=== PATIENT | male | born 1995 | race Caucasian/White ===

== ENCOUNTER 2018-10-02 18:24 | Emergency (ER) | payer BC, SELFPAY ==
[2018-10-02 18:28] VITALS: BP 116/90; PULSE 90; RESP 12; TEMP 37.1; O2SAT 95
--- NOTE | 2018-10-02 18:49 | W.ED.GENAD ---
Discharge Plan Disposition Patient Disposition: HOME Condition: Improving Discharge Details Chief Complaint: Orthopedic Clinical Impression: Left wrist sprain Primary Care Provider: Janeth,Local ED Provider: Vance Rolle Home Meds and New Rx's Prescriptions: No Action No Known Home Meds RF: 0 Discharge Instructions Instructions: Wrist Sprain (ED) Additional Instructions: Continue ice to reduce pain and swelling. Tylenol and ibuprofen if needed for discomfort. As we discussed, please wear the splint for 7 to 10 days time. If you have persistent pain you will need to be reevaluated to make sure there is no occult fracture. 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 No neuro/motor/vascular deficits. He does have volar swelling and tenderness to palpation. Radiograph obtained without evidence of underlying fracture. I will place him in a splint for comfort. He does understand the need for repeat evaluation if pain persist beyond 7 to 10 days time. He stable for outpatient management at this time HPI General Mode of arrival: ambulatory. Date/Time Provider Initiated Documentation: 10/02/18 18:29. Limitations to Documentation: no limitations. Information obtained by: patient. History of Present Illness 22 year old M presents to the emergency department with the chief complaint of Left wrist pain after falling while rollerblading, described as moderate, Quality is described as dull and constant, and is localized to the left and upper extremity. Patient reports no radiation. Patient started experiencing this minute(s) and it has been constant. No relieving factors improve symptom(s), Movement worsens symptoms . Patient notes no other symptoms.. Patient did receive the following treatments prior to arrival, cold therapy Related Data Home Medications Medication Instructions Recorded Confirmed Unknown [No Known Home Meds] 10/02/18 10/02/18 Allergies Allergy/AdvReac Type Severity Reaction Status Date / Time No Known Allergies Allergy Unverified 10/02/18 18:29 General Stated Complaint: Orthopedic CLARK: 3 Review of Systems Review of Systems No numbness or tingling. Denies other injury. 6 systems reviewed and otherwise negative [facility] Social History Smoking/Tobacco Use Status: Current every day Tobacco Type: cigarettes Alcohol Intake: current Alcohol Intake frequency: a few times a month Drug use: Daily Substance use type: marijuana Do you feel safe at home: Yes Do you feel safe in your relationship?: Yes Exam Narrative Exam Narrative: GEN: awake, alert, oriented 3. Pleasant, well groomed, interactive. HEAD: Normocephalic, atraumatic EXT: Full ROM, tender on left volar wrist. No significant deformity. 2+ radial pulse bilaterally. Motor rated 5 out of 5. Neuro: Grossly normal neurologic exam, conversant, interactive. Psych: Speech fluent, thoughts congruent, affect normal Course Vital Signs Temperature 37.1 C 10/02/18 18:28 Pulse 90 10/02/18 18:28 Respiratory Rate 12 10/02/18 18:28 Blood Pressure 116/90 10/02/18 18:28 Pulse Oximetry 95 10/02/18 18:28 Temperature 37.1 C 10/02/18 18:28 Temperature Source Temporal Artery Scan 10/02/18 18:28 Pulse 90 10/02/18 18:28 Respiratory Rate 12 10/02/18 18:28 Respiratory Effort Non-Labored 10/02/18 18:30 Blood Pressure 116/90 10/02/18 18:28 Blood Pressure Position Sitting 10/02/18 18:28 Pulse Oximetry 95 10/02/18 18:28 Oxygen Delivery Method Room Air 10/02/18 18:28 Oxygen Flow Rate 0 10/02/18 18:28 Pain Level 9 10/02/18 18:31
--- NOTE | 2018-10-02 18:52 | ED.GENADUL_ITS ---
Discharge Plan Disposition Patient Disposition: HOME Condition: Improving Discharge Details Chief Complaint: Orthopedic Clinical Impression: Left wrist sprain Primary Care Provider: Janeth,Local ED Provider: Vance Rolle Home Meds and New Rx's Prescriptions: No Action No Known Home Meds RF: 0 Discharge Instructions Instructions: Wrist Sprain (ED) Additional Instructions: Continue ice to reduce pain and swelling. Tylenol and ibuprofen if needed for discomfort. As we discussed, please wear the splint for 7 to 10 days time. If you have persistent pain you will need to be reevaluated to make sure there is no occult fracture. 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 No neuro/motor/vascular deficits. He does have volar swelling and tenderness to palpation. Radiograph obtained without evidence of underlying fracture. I will place him in a splint for comfort. He does understand the need for repeat evaluation if pain persist beyond 7 to 10 days time. He stable for outpatient management at this time HPI General Mode of arrival: ambulatory . Date/Time Provider Initiated Documentation: 10/02/18 18:29 . Limitations to Documentation: no limitations . Information obtained by: patient . History of Present Illness 22 year old M presents to the emergency department with the chief complaint of Left wrist pain after falling while rollerblading, described as moderate, Quality is described as dull and constant, and is localized to the left and upper extremity. Patient reports no radiation. Patient started experiencing this minute(s) and it has been constant. No relieving factors improve symptom(s), Movement worsens symptoms . Patient notes no other symptoms.. Patient did receive the following treatments prior to arrival, cold therapy Related Data Home Medications Medication Instructions Recorded Confirmed Unknown [No Known Home Meds] 10/02/18 10/02/18 Allergies Allergy/AdvReac Type Severity Reaction Status Date / Time No Known Allergies Allergy Unverified 10/02/18 18:29 General Stated Complaint: Orthopedic CLARK: 3 Review of Systems Review of Systems No numbness or tingling. Denies other injury. 6 systems reviewed and otherwise negative [facility] Social History Smoking/Tobacco Use Status: Current every day Tobacco Type: cigarettes Alcohol Intake: current Alcohol Intake frequency: a few times a month Drug use: Daily Substance use type: marijuana Do you feel safe at home: Yes Do you feel safe in your relationship?: Yes Exam Narrative Exam Narrative: GEN: awake, alert, oriented 3. Pleasant, well groomed, interactive. HEAD: Normocephalic, atraumatic EXT: Full ROM, tender on left volar wrist. No significant deformity. 2+ radial pulse bilaterally. Motor rated 5 out of 5. Neuro: Grossly normal neurologic exam, conversant, interactive. Psych: Speech fluent, thoughts congruent, affect normal Course Vital Signs Temperature 37.1 C 10/02/18 18:28 Pulse 90 10/02/18 18:28 Respiratory Rate 12 10/02/18 18:28 Blood Pressure 116/90 10/02/18 18:28 Pulse Oximetry 95 10/02/18 18:28 Temperature 37.1 C 10/02/18 18:28 Temperature Source Temporal Artery Scan 10/02/18 18:28 Pulse 90 10/02/18 18:28 Respiratory Rate 12 10/02/18 18:28 Respiratory Effort Non-Labored 10/02/18 18:30 Blood Pressure 116/90 10/02/18 18:28 Blood Pressure Position Sitting 10/02/18 18:28 Pulse Oximetry 95 10/02/18 18:28 Oxygen Delivery Method Room Air 10/02/18 18:28 Oxygen Flow Rate 0 10/02/18 18:28 Pain Level 9 10/02/18 18:31
--- NOTE | 2018-10-02 18:55 | DI.RAD_ITS ---
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
--- NOTE | 2018-10-02 19:03 | DI.VRAD_ITS ---
EXAM: XR Left Wrist Complete, 3 or more Views EXAM DATE/TIME: 10/02/2018 6:54 PM CLINICAL HISTORY: 22 years old, male; Patient HX: Left wrist pain fall when roller blading TECHNIQUE: Imaging protocol: XR Left wrist 3 or more views. COMPARISON: No relevant prior studies available. FINDINGS: Bones/joints: No recent fracture or dislocation is identified. Soft tissues: Normal. IMPRESSION: No recent fracture or dislocation is identified. Dictated and Authenticated by: Roosevelt Dickens MD. Ordering:[id number] Woodard MD
== END 2018-10-02 19:18 | disposition home or self-care (01) ==
PROVIDERS: Emergency Provider Emergency Medicine
DX: S63.502A Unspecified sprain of left wrist, initial encounter (principal); V00.111A Fall from in-line roller-skates, initial encounter
CPT/HCPCS: 99283; 73110; 99282; L3908